=== PATIENT | female | born 1985 | race Caucasian/White ===

== ENCOUNTER 2020-06-04 14:46 | Outpatient (CLI) | payer OTHER, SELFPAY ==
--- NOTE | ~2020-06-04 | XR_ITS ---
XR shoulder RT min 2V DATE: 06/04/2020 15:14 INDICATION: Right shoulder pain TECHNIQUE: 4 views COMPARISON: None FINDINGS: No fracture or dislocation, periosteal reaction or bone destruction or abnormal soft tissue calcification. Normal alignment at the acromioclavicular and glenohumeral joints. IMPRESSION: Negative right shoulder Reviewed, dictated and finalized at location A. IMPRESSION: Negative right shoulder
== END 2020-06-04 14:47 | disposition home or self-care (01) ==
PROVIDERS: PCP Family Medicine; Visit Provider Family Medicine
DX: M67.911 Unspecified disorder of synovium and tendon, right shoulder (principal)
CPT/HCPCS: 73030

== ENCOUNTER → 2021-01-13 08:08 | Outpatient (CLI) | payer BC, SELFPAY ==
--- NOTE | ~2021-01-13 | US_ITS ---
EXAMINATION: US abdomen complete DATE: 01/13/2021 08:32 INDICATION: Autoimmune hepatitis TECHNIQUE: Multiple grayscale and Doppler ultrasound images of the abdomen were obtained. COMPARISON: None available FINDINGS: The head, body, and tail of the pancreas are normal. The liver is normal with normal echoge nicity and echotexture. No surface nodularity. Normal hepatopetal flow in the main portal vein. The g allbladder is normal with no abnormal wall thickening, pericholecystic fluid or stones. The normal co mmon bile duct measures 3 mm. There was no sonographic Levy sign. The visualized portions of the ao rta and inferior vena cava are normal. The right kidney measures 10.6 x 3.7 x 5.5 cm. The left kidney measures 11.0 x 4.5 x 5.3 cm. The kidn eys demonstrate normal parenchymal echogenicity. There is no hydronephrosis. The spleen is normal in appearance and measures 11.0 cm. IMPRESSION: 1. Unremarkable abdominal ultrasound. Reviewed, dictated and finalized at location B.
== END ==
PROVIDERS: PCP Emergency Medicine; Visit Provider Emergency Medicine
DX: K75.4 Autoimmune hepatitis (principal)
CPT/HCPCS: 76700